=== PATIENT | female | born 1980 | race Caucasian/White ===

== ENCOUNTER 2017-12-03 11:56 | Emergency (ER) | payer SELFPAY ==
[~2017-12-03] VITALS: Ht 180.3 cm; Wt 81.7 kg
[~2017-12-03 11:56] MED LIST: COPPER IUD; HYDACE5 PO; IBUP800 PO; NAPR500EC PO; Norco 5-325 Ta1 EACH PO; PRED10 PO; SERT100 PO; SERT25 PO; TRAZ100 PO
[2017-12-03] MEDS ORDERED: Zofran Odt4 MG SL (13:33)
[2017-12-03] MEDS ORDERED: Norco 5-325 Ta1 EACH PO (13:33)
[2017-12-03] MEDS ORDERED: Prednisone20 MG PO (13:33)
== END 2017-12-03 13:56 | disposition home or self-care (01) ==
LOC: ER 11:56
DX: G62.9 Polyneuropathy, unspecified (principal); Z79.899 Other long term (current) drug therapy; Z87.891 Personal history of nicotine dependence; Z79.52 Long term (current) use of systemic steroids
CPT/HCPCS: 93005; 93010; 99283

== ENCOUNTER 2017-12-07 12:10 | Emergency (ER) | payer SELFPAY ==
[~2017-12-07] VITALS: Ht 180.3 cm; Wt 81.7 kg
[~2017-12-07 12:10] MED LIST changes: +Prednisone20 MG PO; +Zofran Odt4 MG SL
[2017-12-07 14:50] LABS: Calcium, Ionized (POC) 1.11 mmol/L (1.10-1.46); Chloride (POC) 102 mmol/L (98-108); Creatinine (POC) 0.6 mg/dL (0.6-1.0); Glucose (ISTAT POC) 105 mg/dL (70-99); Hemoglobin (POC) 13.3 g/dL (12.0-16.0); Potassium (POC) 4.2 mmol/L (3.5-5.5); Sodium (POC) 141 mmol/L (135-148); Total CO2 (POC) 29 mmol/L (21-32)
[2017-12-07] MEDS ORDERED: Zithromax250 MG PO (16:05)
== END 2017-12-07 16:30 | disposition home or self-care (01) ==
LOC: ER 12:10
PROVIDERS: Physician Assistant
DX: J18.9 Pneumonia, unspecified organism (principal); Z79.899 Other long term (current) drug therapy; Z79.52 Long term (current) use of systemic steroids; Z87.891 Personal history of nicotine dependence
CPT/HCPCS: 36415; 71046; 71260; 80047; 85014; 96374; 99284; J1885; Q9967

== ENCOUNTER 2020-12-26 09:09 | Day surgery (SDC) | payer OTHER ==
[~2020-12-26] VITALS: Ht 180.3 cm; Wt 94.8 kg
[~2020-12-26 09:09] MED LIST changes: +Zithromax250 MG PO
[2020-12-26] MEDS ORDERED: ESCI20 (09:42)
[2020-12-26] MEDS ORDERED: GABA100 (09:43)
--- NOTE | 2020-12-26 09:46 | NUR ---
12/26/20 0946 Katherin Trujillo CALL LIGHT WITHIN REACH
--- NOTE | 2020-12-26 10:36 | NUR ---
12/26/20 1036 Dahlia Woodall 2 INCH LACERATION NOTED TO TOP OF L HAND. COVERED WITH OPSITE AFTER PREOP. PHYSICIAN AWARE.
--- NOTE | 2020-12-26 12:31 | NUR ---
12/26/20 1231 Jihan Lewis PT GIVEN SLING PER PT REQUEST
== END 2020-12-26 12:26 | disposition home or self-care (01) ==
LOC: ORSCSDS 09:09
PROVIDERS: Orthopaedic Surgery
PROC: 0LX80ZZ Transfer Left Hand Tendon, Open Approach (ICD-10-PCS; principal; 2020-12-26 10:30)
PROC: 0LS Tendons, Reposition (ICD-10-PCS; principal; 2020-12-26 10:30)
DX: M18.12 Unilateral primary osteoarthritis of first carpometacarpal joint, left hand (principal); B19.20 Unspecified viral hepatitis C without hepatic coma; Z87.891 Personal history of nicotine dependence
CPT/HCPCS: A9270; C1713; J0690; J1100; J1885; J2250; J2405; J2704; J2795; J3010; J7120